=== PATIENT | female | born 1980 | race Caucasian/White ===

== ENCOUNTER 2020-01-11 16:07 | Emergency (ER) | payer OTHER, SELFPAY ==
[2020-01-11 16:11] VITALS: BP 128/72; PULSE 79; RESP 17; TEMP 36.7; O2SAT 98
--- NOTE | 2020-01-11 16:12 | W.ED.GENAD ---
Discharge Plan Disposition Patient Disposition: HOME Condition: Stable Discharge Details Chief Complaint: Orthopedic Clinical Impression: Ankle sprain Primary Care Provider: Michelle,Local ED Provider: Ronnell Brantley Home Meds and New Rx's Prescriptions: No Action fluoxetine [Prozac] 40 mg Capsule 40 mg PO DAILY RF: 0 Discharge Instructions Instructions: Ankle Sprain (ED) Additional Instructions: X-ray of the foot and ankle are unremarkable. Rest, elevate, cool compresses every 2 hours for 20 days. Wear stirrup splint and use crutches as needed, advance activity as tolerated. [id number] Tylenol and/or Motrin as directed for discomfort. Please watch for new or worsening symptoms and return to the ER for any concerns. If you are not feeling moderate improvement over the next 5 days, I do recommend reevaluation through your primary care provider or potential referral to orthopedics Stand Alone Forms: Work Release Medical Decision Making Twist injury yesterday, has been able to bear weight. Neuro/vascular/tendon intact. Will obtain X ray of foot and ankle. X-ray of the foot and ankle read by virtual radiology as negative. Discussed treatment options. Air stirrup splint and crutches applied. Discussed using [id number] Tylenol and/or Motrin. Patient comfortable discharge and has no additional questions or concerns HPI General Mode of arrival: ambulatory. Date/Time Provider Initiated Documentation: 01/11/20 16:08. Limitations to Documentation: no limitations. Information obtained by: patient. History of Present Illness 39 year old F presents to the emergency department with the chief complaint of R foot/ankle pain, described as moderate (tripped/twisted down one stair), with intensity rated at 7. Quality is described as aching and sharp, and is localized to the right and lower extremity (foot/ankle). Patient reports no radiation. Patient started experiencing this day(s) (1) and it has been constant. No relieving factors improve symptom(s), Movement worsens symptoms . Patient notes no other symptoms.. Patient did receive the following treatments prior to arrival, other (tylenol yesterday) Related Data Home Medications Medication Instructions Recorded Confirmed fluoxetine [Prozac] 40 mg PO DAILY 01/11/20 01/11/20 Allergies Allergy/AdvReac Type Severity Reaction Status Date / Time No Known Allergies Allergy Unverified 01/11/20 16:15 Review of Systems Constitutional Constitutional: Denies headache(s) and Denies weakness ENT Ears, Nose, Mouth, and Throat: Denies headache(s) Cardiovascular Cardiovascular: Denies chest pain Musculoskeletal Musculoskeletal: Reports arthralgias (ankle), Denies numbness and Denies tingling Integumentary/Breasts Skin/Breast: Denies rash Neurologic Neurologic: Denies headache(s), Denies numbness, Denies tingling and Denies weakness [facility] Social History Smoking/Tobacco Use Status: Never Alcohol Intake: never Drug use: Never Substance use type: does not use Do you feel safe at home: Yes Do you feel safe in your relationship?: Yes Exam Const General: cooperative, healthy appearing, comfortable and no acute distress Orientation: alert and awake HENMT Head: normal to inspection, normocephalic and atraumatic Mouth: moist mucous membranes Eyes Conjunctivae: conjunctivae normal Neck Neck: normal visual inspection, trachea midline and supple Resp Effort & Inspection: normal respiratory effort and able to speak in complete sentences Cardio Rate: regular rate Rhythm: regular rhythm Skin General skin exam: no rashes or lesions noted Neuro General: patient alert, patient awake, moves all extremities and no focal motor deficits Sensory Exam: no sensory deficits noted Extrem General: normal to inspection, full ROM and capillary refill normal Right lower extremity: normal to inspection, full ROM, normal capillary refill, ankle Details: normal to inspection, tenderness Location: of the lateral malleolus and normal ROM and foot Details: normal capillary refill, normal to inspection and tenderness Location: of the lateral foot Location: at the base of 5th metatarsal Psych Appearance: grossly normal Mental Status: mental status grossly normal
--- NOTE | 2020-01-11 16:15 | DI.RAD_ITS ---
EXAM: XR FOOT RT COMPLETE CLINICAL HISTORY: fall/pain at base of 5th metatarsal. TECHNIQUE: 2D digital imaging was performed. COMPARISON: No exams were available for comparison FINDINGS: BONES: No acute fracture is present. No bony destructive lesion is seen. JOINTS: No dislocation present. SOFT TISSUE: Normal. IMPRESSION: Unremarkable radiographs of the right foot. DATA REPOSITORY: RADIATION DOSE DELIVERED:
--- NOTE | 2020-01-11 16:15 | DI.RAD_ITS ---
EXAM: XR ANKLE RT COMPLETE CLINICAL HISTORY: twist - lat/ant pain TECHNIQUE: 2D digital imaging was performed. COMPARISON: No exams were available for comparison FINDINGS: BONES: No acute fracture is present. No bony destructive lesion is seen. JOINTS:The ankle mortise is normally aligned. SOFT TISSUE: Normal. IMPRESSION: Unremarkable radiographs of the right ankle. DATA REPOSITORY: RADIATION DOSE DELIVERED:
--- NOTE | 2020-01-11 16:43 | DI.VRAD_ITS ---
PROCEDURE INFORMATION: Exam: XR Right Foot Complete Exam date and time: 01/11/2020 4:30 PM Age: 39 years old Clinical indication: Injury or trauma; Fall; Initial encounter; Sprain or strain; Foot; Right TECHNIQUE: Imaging protocol: XR Right foot. Views: 3 or more views. COMPARISON: No relevant prior studies available. FINDINGS: Bones/joints: Normal. Soft tissues: Normal. IMPRESSION: No acute abnormality. Dictated and Authenticated by: Bc Johnson MD. Ordering:CHRIS Reynaga MD
--- NOTE | 2020-01-11 16:44 | DI.VRAD_ITS ---
PROCEDURE INFORMATION: Exam: XR Right Ankle Exam date and time: 01/11/2020 4:19 PM Age: 39 years old Clinical indication: Injury or trauma; Fall; Initial encounter; Sprain or strain; Ankle; Right TECHNIQUE: Imaging protocol: XR Right ankle. Views: 3 or more views. COMPARISON: No relevant prior studies available. FINDINGS: Bones/joints: Normal. Soft tissues: Normal. IMPRESSION: No acute abnormality. Dictated and Authenticated by: Bc Johnson MD. Ordering:CHRIS Reynaga MD
== END 2020-01-11 17:54 | disposition home or self-care (01) ==
PROVIDERS: Emergency Provider Physician Assistant
DX: S93.491A Sprain of other ligament of right ankle, initial encounter (principal); W10.8XXA Fall (on) (from) other stairs and steps, initial encounter; X50.9XXA Other and unspecified overexertion or strenuous movements or postures, initial encounter
CPT/HCPCS: 29515; 99284; 73610; 73630; 99283; E0114; L4350